=== PATIENT | male | born 1980 | race African-American/Black ===

== ENCOUNTER 2019-03-17 21:32 | Emergency (ER) | payer OTHER ==
[~2019-03-17] VITALS: Ht 195.6 cm; Wt 83.9 kg
[2019-03-17 21:45] VITALS: BP 123/56
[2019-03-17] MEDS ORDERED: CYCL10TA2 PO (22:19)
--- NOTE | 2019-03-17 22:21 | PHYS DOC ---
Past Medical History Past Medical History: Asthma (YVETTE JARQUIN APRN) Alcohol Use: Occasionally Drug Use: Marijuana (YVETTE JARQUIN APRN) Adult General Chief Complaint Chief Complaint: [facility] HPI Patient is a 38 year old male who presents with left shoulder pain. Patient reports over the last 4-5 days he has continued to have some discomfort to his left shoulder. Reports he has pain that seems to go across the top of his back and shoots down into his arm as well. States he has some pain when he tries to turn his head to the right, but no discomfort moving to the left, up, or down. States he does have some pain to his shoulder as well, worsened with movement, states no limitation in movement only discomfort. Denies trauma, denies increased activity. (YVETTE JARQUIN APRN) Review of Systems Review of Systems Constitutional: Denies fever or chills [] Eyes: Denies change in visual acuity, redness, or eye pain [] HENT: Denies nasal congestion or sore throat [] Respiratory: Denies cough or shortness of breath [] Cardiovascular: No additional information not addressed in HPI [] GI: Denies abdominal pain, nausea, vomiting, bloody stools or diarrhea [] : Denies dysuria or hematuria [] Musculoskeletal: Reports pain to left shoulder, back near scapula[] Integument: Denies rash or skin lesions [] Neurologic: Denies headache, focal weakness or sensory changes [] Endocrine: Denies polyuria or polydipsia [] All other systems were reviewed and found to be within normal limits, except as documented in this note. (YVETTE JARQUIN APRN) Current Medications Current Medications Current Medications Medications (Trade) Dose Ordered Sig/[facility] Start Time Stop Time Status Last Admin Dose Admin Ibuprofen (Motrin) 400 mg 1X ONCE 03/17/19 22:30 03/17/19 22:31 DC 03/17/19 22:38 400 MG (ADRIANE VILLASENOR MD) Allergies Allergies Allergies Coded Allergies Type Severity Reaction Last Updated Verified No Known Drug Allergies 03/17/19 No (ADRIANE VILLASENOR MD) Physical Exam Physical Exam Constitutional: Well developed, well nourished, no acute distress, non-toxic appearance. [] HENT: Normocephalic, atraumatic, bilateral external ears normal, oropharynx moist, no oral exudates, nose normal. [] Eyes: PERRLA, EOMI, conjunctiva normal, no discharge. [] Neck: Normal range of motion, no tenderness, supple, no stridor. [] Cardiovascular:Heart rate regular rhythm, no murmur [] Lungs & Thorax: Bilateral breath sounds clear to auscultation [] Abdomen: Bowel sounds normal, soft, no tenderness, no masses, no pulsatile masses. [] Skin: Warm, dry, no erythema, no rash. [] Back: No tenderness, no CVA tenderness. Increased discomfort noted on torso twisting with discomfort to [] Extremities: no cyanosis, no clubbing, ROM intact, no edema. Minimal point tenderness noted to medial aspect of the left scapula, inferior and point tenderness noted to anterior shoulder. Full active and passive ROM of the extremity. Increased discomfort noted on anterior crossover. [] Neurologic: Alert and oriented X 3, normal motor function, normal sensory function, no focal deficits noted. [] Psychologic: Affect normal, judgement normal, mood normal. [] (YVETTE JARQUIN APRN) Current Patient Data Vital Signs Vital Signs Date Time Temp Pulse Resp B/P (MAP) Pulse Ox O2 Delivery O2 Flow Rate FiO2 03/17/19 21:45 98.6 81 16 123/56 (78) 97 Room Air 98.6 (ADRIANE VILLASENOR MD) EKG EKG [] (YVETTE JARQUIN APRN) Radiology/Procedures Radiology/Procedures [] (YVETTE AJRQUIN APRN) Course & Med Decision Making Course & Med Decision Making Pertinent Labs and Imaging studies reviewed. (See chart for details) [Discussed inflammation in shoulder joint, discussed scheduled NSAIDS, discussed muscle tension in back due to discomfort in shoulder. Discussed localized tenderness to anterior shoulder and scapula likely musculoskeletal, discussed discomfort on ROM also likely musculoskeletal. Discussed use of sling, follow up with PCP or ortho as needed.] (YVETTE JARQUIN APRN) Course & Med Decision Making Staff Physician Addendum: I was working in the ER during the course of this patient's visit. I was availa ble for consultation as needed, but I was not directly involved in the care of this patient. (ADRIANE VILLASENOR MD) Dragon Disclaimer Dragon Disclaimer This electronic medical record was generated, in whole or in part, using a voice recognition dictation system. (YVETTE JARQUIN APRN) Departure Departure Impression: Primary Impression: Bursitis of left shoulder Additional Impression: Shoulder pain, acute Disposition: 01 HOME, SELF-CARE Condition: GOOD Referrals: LAY FORD JR, MD (PCP) Patient Instructions: Cyclobenzaprine tablets, Shoulder Pain Additional Instructions: As we discussed, wear the sling for the next 5-6 days Take Ibuprofen (400 - 600 mg) every 8 hours for the next 5-6 days to decrease the inflammation in your shoulder You may apply ice to your shoulder Take the muscle relaxer no more than 2-3 days, and do not take it at work, or if you are driving. Follow up with your primary care provider as needed Scripts Cyclobenzaprine Hcl (CYCLOBENZAPRINE HCL) 10 Mg Tablet 1 TAB PO Q8HRS PRN for MUSCLE SPASMS, #10 TAB Prov: YVETTE JARQUIN APRN 03/17/19 Problem Qualifiers Additional Impression: Shoulder pain, acute Laterality: left Qualified Codes: M25.512 - Pain in left shoulder YVETTE JARQUIN APRN Mar 17, 2019 22:21 ADRIANE VILLASENOR MD Mar 18, 2019 03:25
[2019-03-17] MEDS ORDERED: IBUPROFEN 400 MG TABLET. PO ONE (22:30)
== END 2019-03-17 22:35 | disposition home or self-care (01) ==
LOC: ER 21:32
DX: M75.52 Bursitis of left shoulder (principal); J45.909 Unspecified asthma, uncomplicated
CPT/HCPCS: 99283